=== PATIENT | female | born 1960 | race Caucasian/White ===

== ENCOUNTER 2017-07-02 09:45 | Emergency (ER) | payer SELFPAY ==
[2017-07-02 09:51] VITALS: BMI 20.9
[2017-07-02] MEDS ORDERED: Sodium Chloride 0.9% 1,000 ML IV STA ×2 (10:50→12:22)
--- NOTE | 2017-07-02 10:53 | ED PDOC ---
HPI: Headache Time Seen by Provider: 07/02/17 10:51 Chief Complaint (Nursing): Headache Chief Complaint (Provider): headache History Per: Patient (57 y/o female h/o DM here with complaint of left side headache/facial pain noted worse with leaning forward/coughing and laying on side of face. Denies any nasal discharge/fevers/chills.) Past Medical History Reviewed: Historical Data, Nursing Documentation, Vital Signs Vital Signs: Last Vital Signs Temp 97.6 F 07/02/17 09:51 Pulse 71 07/02/17 09:51 Resp 17 07/02/17 09:51 BP 157/91 H 07/02/17 09:51 Pulse Ox 100 07/02/17 09:51 - Medical History PMH: Denies: Chronic Kidney Disease - Family History Family History: States: No Known Family Hx - Allergies Allergies/Adverse Reactions: Allergies Allergy/AdvReac Type Severity Reaction Status Date / Time No Known Allergies Allergy Verified 07/02/17 10:00 Review of Systems ROS Statement: Except As Marked, All Systems Reviewed And Found Negative ENT: Positive for: Other (face pain) Physical Exam - Reviewed Nursing Documentation Reviewed: Yes Vital Signs Reviewed: Yes - Physical Exam Appears: Positive for: Well, Non-toxic, No Acute Distress Head Exam: Positive for: ATRAUMATIC, NORMAL INSPECTION, NORMOCEPHALIC Skin: Positive for: Normal Color, Warm, DRY Eye Exam: Positive for: EOMI, Normal appearance, PERRL ENT: Positive for: Normal ENT Inspection, Other (nontender face.) Neck: Positive for: Normal, Painless ROM Cardiovascular/Chest: Positive for: Regular Rate, Rhythm Respiratory: Positive for: CNT, Normal Breath Sounds Gastrointestinal/Abdominal: Positive for: Normal Exam, Soft Back: Positive for: Normal Inspection Extremity: Positive for: Normal ROM Neurologic/Psych: Positive for: Alert, Oriented - Laboratory Results Result Diagrams: 07/02/17 11:22 07/02/17 11:22 Urine dip results: Negative for: Leukocyte Esterase, Blood, Nitrate, Ketones, Glucose, Bilirubin - ECG O2 Sat by Pulse Oximetry: 100 - Progress ED Course And Treament: HEAD CT: IMPRESSION: No acute intracranial abnormality. NS 2 LITERS. REPEAT BS 377 INSULIN 6 MG IV X 1 DOSE REPEAT BS 50 PATIENT ATE MEAL IN ED REPEAT 169 AFTER MEAL Disposition - Clinical Impression Clinical Impression: Headache, Hyperglycemia - Patient ED Disposition Is Patient to be Admitted: No - Disposition Referrals: [facility] [Outside] Disposition: Routine/Home Disposition Time: 15:35 Condition: FAIR Instructions: Hyperglycemia, Adult (DC), Headache, Adult (DC) Forms: [employer] (Malian) Print Language: ICELANDIC
[2017-07-02 11:29] LABS: VENOUS BLOOD GAS BASE EXCESS 0.1 mmol/L (0.0-2.0); VENOUS BLOOD GAS PCO2 51 mmHg (40-60); VENOUS BLOOD GAS PO2 23 mm/Hg (30-55); VENOUS BLOOD PH 7.33 (7.32-7.43)
--- NOTE | 2017-07-02 11:31 | CT ---
PROCEDURE: CT HEAD WITHOUT CONTRAST. HISTORY: left side headache COMPARISON: 08/13/2013. TECHNIQUE: Axial computed tomography images were obtained through the head/brain without intravenous contrast. Radiation dose: Total exam DLP = 692.52 mGy-cm. This CT exam was performed using one or more of the following dose reduction techniques: Automated exposure control, adjustment of the mA and/or kV according to patient size, and/or use of iterative reconstruction technique. FINDINGS: HEMORRHAGE: No intracranial hemorrhage. BRAIN: Harris-white matter differentiation is preserved. There is no mass, mass effect or abnormal extra-axial fluid collection. There are scattered coarse round calcifications in both cerebral cortices, a sequela of remote infection/inflammation. VENTRICLES: The ventricles are normal in size, shape and configuration. CALVARIUM: The skull base and calvarium are normal. PARANASAL SINUSES: Predominantly clear. MASTOID AIR CELLS: Predominantly clear. OTHER FINDINGS: None. IMPRESSION: No acute intracranial abnormality.
[2017-07-02 11:37] LABS: BASO % 0.5 % (0.0-2.0); EOS # 0.1 K/uL (0.0-0.7); HEMOGLOBIN 14.3 g/dL (12.0-16.0); LYMPH # 1.7 K/uL (1.0-4.3); LYMPH % 23.5 % (20.0-40.0); MEAN CELL VOLUME 93.5 fl (81.0-99.0); MEAN CORPUSCULAR HEMOGLOBIN 32.2 pg (27.0-31.0); MEAN CORPUSCULAR HGB CONC 34.5 g/dL (33.0-37.0); MEAN PLATELET VOLUME 9.6 fl (7.2-11.7); MONO # 0.4 K/uL (0.0-0.8); MONO % 5.9 % (0.0-10.0); NEUT # 5.1 K/uL (1.8-7.0); NEUT % 68.1 % (50.0-75.0); NRBC % 0.1 % (0.0-0.0); RBC 4.44 Mil/uL (3.80-5.20); RED CELL DISTRIBUTION WIDTH 12.9 % (11.5-14.5); WHITE BLOOD COUNT 7.4 K/uL (4.8-10.8)
[2017-07-02 12:04] LABS: BLOOD UREA NITROGEN 24 mg/dl (7-17); CALCIUM 9.4 mg/dL (8.4-10.2); GFR AFRICAN-AMERICAN > 60; GFR NON-AFRICAN AMERICAN > 60
[2017-07-02] MEDS ORDERED: Insulin Regular 100 units/ml IVP ONE (12:23)
[2017-07-02] MEDS ORDERED: Insulin Regular 100 units/ml ONE (12:58)
[2017-07-02] MEDS ORDERED: Dextrose 50% SYRINGE Inj (50 ml) IVP ONE (14:46)
[2017-07-02 16:03] VITALS: BP 154/89; PULSE 70; RESP 16; TEMP 97.5; O2SAT 99
== END 2017-07-02 16:22 | disposition home or self-care (01) ==
LOC: H.ER 09:45
DX: R51 Headache (principal); E11.65 Type 2 diabetes mellitus with hyperglycemia; Z79.4 Long term (current) use of insulin
CPT/HCPCS: 70450; 80048; 82803; 82948; 85025; 96374; 99285; J7040

== ENCOUNTER 2017-11-26 17:26 | Emergency (ER) | payer SELFPAY ==
[2017-11-26 17:26] VITALS: BMI 20.9
[2017-11-26 17:49] VITALS: O2SAT 99
--- NOTE | 2017-11-26 18:58 | ED PDOC ---
HPI: Psych/Substance Abuse Time Seen by Provider: 11/26/17 18:10 Chief Complaint (Nursing): Anxiety Chief Complaint (Provider): Anxiety History Per: Patient History/Exam Limitations: no limitations Onset/Duration Of Symptoms: Days (x7) Current Symptoms Are (Timing): Still Present Suicide/Self Injury Attempted (Context): None Modifying Factor(s): None Associated Symptoms: Anxiety Additional Complaint(s): 57 y/o female with a PMHx of DM, HTN and fractures presents to the ED for evaluation of Anxiety, onset one week ago. Patient reports she feels like she is having an anxiety attack because she is constantly anxious, crying and desperate. Patient additionally states she cannot sleep due to feeling anxious. Denies previous psychiatric history, suicidal ideation, homicidal ideation and headache. PMD: Dr. Ribera ([facility]) Past Medical History Reviewed: Historical Data, Nursing Documentation, Vital Signs Vital Signs: Last Vital Signs Temp 98 F 11/26/17 17:43 Pulse 78 11/26/17 17:43 Resp 18 11/26/17 17:43 BP 169/78 H 11/26/17 17:43 Pulse Ox 99 11/26/17 17:43 - Medical History PMH: Diabetes, Fractures, HTN Denies: Chronic Kidney Disease - Surgical History Surgical History: Other surgeries: Right leg fracture repair - Family History Family History: States: Unknown Family Hx - Social History Current smoker - smoking cessation education provided: No Ex-Smoker (has not smoked in the last 12 months): Yes (4 months ago) - Home Medications Home Medications: Ambulatory Orders Medication Instructions Recorded hydrOXYzine Pamoate [Vistaril] 25 mg PO HS PRN #7 cap 11/26/17 - Allergies Allergies/Adverse Reactions: Allergies Allergy/AdvReac Type Severity Reaction Status Date / Time No Known Allergies Allergy Verified 07/02/17 10:00 Review of Systems ROS Statement: Except As Marked, All Systems Reviewed And Found Negative Psych: Positive for: Anxiety Physical Exam - Reviewed Nursing Documentation Reviewed: Yes Vital Signs Reviewed: Yes - Physical Exam Appears: Positive for: In Acute Distress Head Exam: Positive for: ATRAUMATIC, NORMOCEPHALIC Skin: Positive for: Normal Color, Warm, Dry Eye Exam: Positive for: Normal appearance, EOMI, PERRL ENT: Positive for: Normal ENT Inspection Neck: Positive for: Normal, Painless ROM, Supple Cardiovascular/Chest: Positive for: Regular Rate, Rhythm. Negative for: Murmur Respiratory: Positive for: Normal Breath Sounds. Negative for: Respiratory Distress Gastrointestinal/Abdominal: Positive for: Normal Exam, Soft. Negative for: Tenderness Extremity: Positive for: Other (Plaster cast noted on right leg. ) Neurologic/Psych: Positive for: Alert, Oriented, Mood/Affect (Anxious) - Laboratory Results Result Diagrams: 11/26/17 19:05 11/26/17 19:05 - ECG O2 Sat by Pulse Oximetry: 99 (RA) Pulse Ox Interpretation: Normal Medical Decision Making Medical Decision Making: Time: 1852 Impression: Psychiatric Evaluation Plan: -- EKG -- Acetaminophen -- Alcohol Serum -- CMP -- Urine Drug Screen -- Salicylate -- Crisis Evaluation -- CBC with differentials -- Urinalysis Time: 1899 -- Patient endorsed to Dr. Polanco, pending ER workup, reassessment and final ER disposition. Scribe Attestation: Documented by Esther Gagnon acting as a scribe for Eboni Castellanos MD. Provider Scribe Attestation: All medical record entries made by the Scribe were at my direction and personally dictated by me. I have reviewed the chart and agree that the record accurately reflects my personal performance of the history, physical exam, medical decision making, and the department course for this patient. I have also personally directed, reviewed, and agree with the discharge instructions and disposition. Disposition - Clinical Impression Clinical Impression: Anxiety - Patient ED Disposition Is Patient to be Admitted: Transfer of Care - Disposition Disposition: Transfer of Care Disposition Time: 19:00 Condition: STABLE Prescriptions: hydrOXYzine Pamoate [Vistaril] 25 mg PO HS PRN #7 cap PRN Reason: for insomnia Instructions: Anxiety, Adult (DC) Forms: [facility] ([place]) Patient Signed Over To: Yang Polanco
--- NOTE | 2017-11-26 19:13 | ED PDOC ---
- Laboratory Results Result Diagrams: 11/26/17 19:05 11/26/17 19:05 - ECG O2 Sat by Pulse Oximetry: 99 (RA) Pulse Ox Interpretation: Normal Medical Decision Making Medical Decision Making: Time: 1899 -- Patient endorsed to me by Dr. Castellanos, pending ER workup, reassessment and final ER disposition. Time: 2250 -- Patient evaluated by crisis who states patient is stable for discharge with a diagnosis of anxiety. ____ Scribe Attestation: Documented by Esther Gagnon acting as a scribe for Yang Polanco MD. Provider Scribe Attestation: All medical record entries made by the Scribe were at my direction and personally dictated by me. I have reviewed the chart and agree that the record accurately reflects my personal performance of the history, physical exam, medical decision making, and the department course for this patient. I have also personally directed, reviewed, and agree with the discharge instructions and disposition. Disposition - Clinical Impression Clinical Impression: Anxiety - POA Present On Arrival: None - Disposition Disposition: Routine/Home Disposition Time: 22:51 Condition: STABLE Prescriptions: hydrOXYzine Pamoate [Vistaril] 25 mg PO HS PRN #7 cap PRN Reason: for insomnia Instructions: Anxiety, Adult (DC) Forms: [facility] (Yakut)
[2017-11-26 19:17] LABS: BASO # 0.1 K/uL (0.0-0.2); BASO % 1.5 % (0.0-2.0); EOS # 0.1 K/uL (0.0-0.7); EOS % 1.7 % (0.0-4.0); HEMOGLOBIN 12.9 g/dL (12.0-16.0); LYMPH # 2.7 K/uL (1.0-4.3); LYMPH % 37.3 % (20.0-40.0); MEAN CELL VOLUME 93.8 fl (81.0-99.0); MEAN CORPUSCULAR HEMOGLOBIN 31.6 pg (27.0-31.0); MEAN CORPUSCULAR HGB CONC 33.7 g/dL (33.0-37.0); MEAN PLATELET VOLUME 7.8 fl (7.2-11.7); MONO # 0.5 K/uL (0.0-0.8); MONO % 6.7 % (0.0-10.0); NEUT # 3.9 K/uL (1.8-7.0); NEUT % 52.8 % (50.0-75.0); RBC 4.09 Mil/uL (3.80-5.20); RED CELL DISTRIBUTION WIDTH 13.6 % (11.5-14.5); WHITE BLOOD COUNT 7.3 K/uL (4.8-10.8)
[2017-11-26 19:28] LABS: ALB/GLOB RATIO 1.1 (1.0-2.1); ALT/SGPT 31 U/L (9-52); AST/SGOT 36 U/L (14-36); BLOOD UREA NITROGEN 13 mg/dl (7-17); CALCIUM 10.1 mg/dL (8.4-10.2); GFR NON-AFRICAN AMERICAN > 60
[2017-11-26 19:28] LABS: SQUAMOUS EPITHIAL 1 /hpf (0-5); URINE BILIRUBIN NEGATIVE (NEGATIVE); URINE BLOOD NEGATIVE (NEGATIVE); URINE CLARITY CLEAR (Clear); URINE COLOR STRAW (YELLOW); URINE GLUCOSE (UA) NEG (Normal); URINE LEUKOCYTE ESTERASE MOD Leu/uL (Negative); URINE PROTEIN NEGATIVE (NEGATIVE); URINE UROBILINOGEN 0.2-1.0 mg/dL (0.2-1.0)
[2017-11-26 19:29] LABS: ACETAMINOPHEN < 10.0 ug/ml (10.0-30.0); SALICYLATE < 1.0 mg/dl
[2017-11-26 20:33] LABS: BARBITURATES, UR NEGATIVE (NEGATIVE); BENZODIAZEPINES, UR NEGATIVE (NEGATIVE); OPIATES, UR NEGATIVE (NEGATIVE); PHENCYCLIDINE, UR NEGATIVE (NEGATIVE)
[2017-11-26 23:11] VITALS: RESP 17
[2017-11-26 23:14] VITALS: BP 146/82; PULSE 76; TEMP 98.3
--- NOTE | 2017-11-27 06:36 | CARD ---
APPROVED REPORT Date of service: 11/26/2017 EKG Measurement Heart [id number] <Conclusion> Normal sinus rhythm Normal ECG
== END 2017-11-26 22:53 | disposition home or self-care (01) ==
LOC: H.ER 17:26
DX: F41.9 Anxiety disorder, unspecified (principal); Z00.8 Encounter for other general examination; E11.9 Type 2 diabetes mellitus without complications; I10 Essential (primary) hypertension; Z87.891 Personal history of nicotine dependence